=== PATIENT | male | born 1965 | race Caucasian/White ===

== ENCOUNTER → 2016-08-01 | Outpatient (CLI) | payer BC | END | disposition home or self-care (01) | LOC: GMAB 10:26 | PROVIDERS: ATTEND Family Medicine | DX: Z00.01 Encounter for general adult medical examination with abnormal findings (principal) ==

== ENCOUNTER 2016-08-05 10:36 | Emergency (ER) | payer BC ==
[2016-08-05 10:48] VITALS: BP 141/85; TEMP 97.9; O2SAT 98
--- NOTE | 2016-08-05 11:02 | ED.PDOC ---
History of Present Illness - General Chief Complaint: Respiratory Problem Stated Complaint: ocugh,congestion,fever Time Seen by Provider: 08/05/16 10:37 Source: patient, RN notes reviewed, Vital Signs reviewed, family Exam Limitations: no limitations - History of Present Illness Comments: Patient with 3 days of cough, chest congestion, body aches and subjective fever. Has to go to work tomorrow and wants to feel better. Timing/Duration: constant Cough Quality/Degree: moderate Possible Cause: no prior episodes Improving Factors: nothing Worsening Factors: nothing Associated Symptoms: cough, fever/chills, muscle aches Respiratory Risk Factors: no cause identified Allergies/Adverse Reactions: Allergies NO KNOWN ALLERGY Allergy (Verified 08/05/16 10:48) Home Medications: Ambulatory Orders Benzonatate Perles [Tessalon Perles] 100 mg PO TID #30 cap 08/05/16 Review of Systems - Review of Systems Constitutional: States: fever, malaise. Denies: chills, diaphoresis, weakness EENTM: States: no symptoms reported Respiratory: States: cough. Denies: short of breath, stridor, wheezing Cardiology: States: no symptoms reported Gastrointestinal/Abdominal: States: no symptoms reported Musculoskeletal: States: muscle pain. Denies: back pain, joint pain, neck pain Skin: States: no symptoms reported Neurological: States: no symptoms reported Endocrine: States: no symptoms reported Past Medical History (General) - Patient Medical History Hx Hypertension: Yes - Vaccination History Hx Influenza Vaccination: No - Social History Hx Tobacco Use: Yes - smoker cigars occasionally Family Medical History - Family History Father Family History: Unknown Living Status: Physical Exam - Physical Exam General Appearance: Alert, Comfortable, No apparent distress, Well Developed, Well Groomed, Well Hydrated, Well Nourished Eye Exam: bilateral normal ENT Exam: normal ENT inspection, hearing grossly normal, TMs normal, pharynx normal Neck: non-tender, full range of motion, supple, trachea midline, lymphadenopathy (R), lymphadenopathy (L) Respiratory: lungs clear, normal breath sounds, no respiratory distress, no accessory muscle use Cardiovascular/Chest: regular rate, rhythm, no edema, no gallop, no JVD, no murmur Extremity: normal range of motion, normal inspection Neurologic: alert, normal mood/affect, oriented x 3 Skin Exam: normal color, warm/dry Progress - Progress Progress: 08/05/16 11:22 Discussed that he has passed the window for Tamiflu. Will continue to treat symptomatically. - Results/Orders Results/Orders: Influenza A + Departure - Departure Clinical Impression: Influenza Time of Disposition: 11:21 Disposition: Discharge to Home or Self Care Condition: Good Departure Forms: ED Discharge - Pt. Copy, Patient Portal Self Enrollment Diet: resume usual diet Prescriptions: Benzonatate Perles [Tessalon Perles] 100 mg PO TID #30 cap Home Medications: Ambulatory Orders Benzonatate Perles [Tessalon Perles] 100 mg PO TID #30 cap 08/05/16
== END 2016-08-05 11:31 | disposition home or self-care (01) ==
LOC: ER 10:36
DX: J11.1 Influenza due to unidentified influenza virus with other respiratory manifestations (principal); F17.290 Nicotine dependence, other tobacco product, uncomplicated